=== PATIENT | female | born 1975 | race Caucasian/White ===

== ENCOUNTER 2017-01-28 09:13 | Outpatient (CLI) | payer BC, OTHER | END 2017-01-28 09:14 | disposition home or self-care (01) | DX: R53.83 Other fatigue (principal) ==

== ENCOUNTER 2017-03-14 08:33 | Day surgery (SDC) | payer BC, OTHER ==
[2017-03-14] MEDS ORDERED: LACTATED RINGERS 1,000 ML IV ONE ×2 (09:31→11:11)
[2017-03-14] MEDS ORDERED: fentaNYL 100 MCG/2 ML VIAL IVP ONE (10:50)
[2017-03-14] MEDS ORDERED: ONDANSETRON 4 MG/2 ML VIAL IVP ONE (10:50)
[2017-03-14] MEDS ORDERED: GLYCOPYRROLATE 1 MG/5 ML VIAL IVP ONE (10:50)
[2017-03-14] MEDS ORDERED: MIDAZOLAM 2 MG/2 ML VIAL IVP ONE (10:50)
[2017-03-14] MEDS ORDERED: ROCURONIUM 50 MG/5 ML VIAL IVP ONE (10:50)
[2017-03-14] MEDS ORDERED: ceFAZolin 1 GM VIAL IV ONE (10:50)
[2017-03-14] MEDS ORDERED: DEXAMETHASONE 4 MG/ML VIAL IVP ONE (10:50)
[2017-03-14] MEDS ORDERED: LIDOCAINE-MPF 2% 5 ML VIAL IM ONE (10:50)
[2017-03-14] MEDS ORDERED: SUCCINYLCHOLINE 200 MG/10 ML VIAL IVP ONE (10:50)
[2017-03-14] MEDS ORDERED: PROPOFOL 200 MG/20 ML VIAL IVP ONE (10:50)
[2017-03-14] MEDS ORDERED: BUPIVACAINE 0.5% PF 30 ML VIAL INFIL ONE ×2 (10:56)
[2017-03-14] MEDS ORDERED: LIDOCAINE MPF 1%-EPI 1:200000 30 ML VIAL SUBQ ONE ×2 (10:57)
[2017-03-14] MEDS: HYDROmorphone 1 MG/ML SYRINGE ONE ×2 (12:06→12:11)
[2017-03-14] MEDS ORDERED: oxyCOD/ACETAMIN 5 MG/325 MG TABLET PO ONE (12:38)
== END 2017-03-14 08:34 | disposition home or self-care (01) ==
PROC: 06BY0ZC Excision of Hemorrhoidal Plexus, Open Approach (ICD-10-PCS; 2017-03-14)
PROC: 06LY0CC Occlusion of Hemorrhoidal Plexus with Extraluminal Device, Open Approach (ICD-10-PCS; principal; 2017-03-14 10:15)
DX: K64.5 Perianal venous thrombosis (principal); K64.4 Residual hemorrhoidal skin tags; F17.210 Nicotine dependence, cigarettes, uncomplicated
CPT/HCPCS: 46221; 46320; 81025; A9270; J1170; J7120

== ENCOUNTER 2017-03-20 18:34 | Emergency (ER) | payer BC, OTHER ==
[2017-03-20] MEDS ORDERED: HYDROmorphone 1 MG/ML SYRINGE IVP STA (19:07)
[2017-03-20] MEDS ORDERED: HYDROmorphone 1 MG/ML SYRINGE ONE (19:20)
[2017-03-20] MEDS ORDERED: diphenhydrAMINE INJ 50 MG/ML VIAL IVP STA (19:59)
[2017-03-20] MEDS ORDERED: KETOROLAC 60 MG/2 ML VIAL IVP STA (19:59)
[2017-03-20] MEDS ORDERED: KETOROLAC 30 MG/ML VIAL ONE (20:34)
[2017-03-20] MEDS ORDERED: diphenhydrAMINE INJ 50 MG/ML VIAL ONE (20:34)
[2017-03-20] MEDS ORDERED: IOPAMIDOL-300 100 ML VIAL IVP ONE (20:36)
[2017-03-20] MEDS ORDERED: NITROGLYCERIN 2% PASTE TOP STA (21:47)
[2017-03-20] MEDS ORDERED: NITROGLYCERIN 2% PASTE TOP ONE (21:55)
[2017-03-20] MEDS ORDERED: LIDOCAINE VISCOUS 2% 15 ML UDC MM STA (22:38)
[2017-03-20] MEDS ORDERED: LIDOCAINE VISCOUS 2% 15 ML UDC MM ONE (22:39)
== END 2017-03-20 22:45 | disposition home or self-care (01) ==
DX: K62.89 Other specified diseases of anus and rectum (principal); G89.18 Other acute postprocedural pain; Z97.5 Presence of (intrauterine) contraceptive device; I25.10 Atherosclerotic heart disease of native coronary artery without angina pectoris; Z95.1 Presence of aortocoronary bypass graft; F17.200 Nicotine dependence, unspecified, uncomplicated
CPT/HCPCS: 36415; 72193; 80048; 85025; 96374; 96375; 99283; 99284; A9270; J1170; Q9967

== ENCOUNTER 2017-10-21 08:00 | Outpatient (CLI) | payer BC, OTHER | END 2017-10-21 23:59 | disposition home or self-care (01) | LOC: LAB.R 08:00 | PROVIDERS: ATTEND Registered Nurse | DX: Z30.433 Encounter for removal and reinsertion of intrauterine contraceptive device (principal) | CPT/HCPCS: 87491; 87591 ==

== ENCOUNTER 2017-10-28 15:45 | Outpatient (CLI) | payer BC, OTHER ==
--- NOTE | 2017-10-28 17:55 | Ultrasound Report ---
EXAM: PELVIC ULTRASOUND EXAM DATE: 10/28/2017 04:50 PM. CLINICAL HISTORY: PELVIC AND PERINEAL PAIN. COMPARISON: None. TECHNIQUE: Realtime transabdominal pelvic scan performed to identify the uterus and adnexa and as an overview of other pelvic structures, followed by transvaginal scan to provide greater detail of the u terus and adnexa, with static image documentation. FINDINGS: Uterus: 7.5 x 4.1 x 5.0 cm, volume 80 cc. Retroverted position. Normal overall size and echotexture. Masses: None. Endometrium: 7 mm. Intrauterine device is in place. Cervix: Unremarkable. Right Ovary: 2.8 x 1.5 x 1.6 cm, volume 4 cc. Normal echotexture and blood flow. Left Ovary: 2.9 x 1.5 x 2.3 cm, volume 5 cc. Normal echotexture and blood flow. Free Fluid: There is a small amount of free fluid within the pelvis. Other: None. IMPRESSION: 1. Uterus and endometrium are normal in echotexture. Intrauterine device is in expected position. 2. The ovaries are normal in size, echotexture, and vascularity. [facility] Referring Provider Line: [phone] SITE ID: [id number]
== END 2017-10-28 15:46 | disposition home or self-care (01) ==
LOC: DI 15:45
PROVIDERS: ATTEND Registered Nurse
DX: R10.2 Pelvic and perineal pain (principal); Z97.5 Presence of (intrauterine) contraceptive device
CPT/HCPCS: 76830; 76856

== ENCOUNTER 2017-11-08 14:37 | Outpatient (CLI) | payer BC, OTHER ==
--- NOTE | 2017-11-10 12:12 | Ultrasound Report ---
DATE OF SERVICE: 11/08/2017 LEFT BREAST ULTRASOUND: 11/08/2017 CLINICAL INDICATION: Focal pain, left upper central breast. TECHNIQUE: Real-time scanning was performed with sales representative publications static images obtained. FINDINGS Ultrasound of the left upper inner quadrant was performed. In the region of focal pain, at the 11:30 position, 5 cm from the nipple, no discrete solid or cystic mass is appreciated. Unremarkable parenc hymal lobules are seen. At the 9 o'clock position far inner, there is a 1.3 x 1.2 x 0.6 cm lymph node, accounting for the marian mographic abnormality. No sonographically suspicious findings are appreciated. IMPRESSION: Benign findings. RECOMMENDATIONS: Routine annual screening unless otherwise clinically indicated. BIRADS category 2 - Benign findings. TD: 11/08/2017 21:03
--- NOTE | 2017-11-10 12:13 | Mammography Report ---
DATE OF SERVICE: 11/08/2017 DIGITAL DIAGNOSTIC BILATERAL MAMMOGRAM: 11/08/2017 CLINICAL INDICATION: Localized pain, left upper inner quadrant. This is the patient's baseline examination. TECHNIQUE: Bilateral CC and MLO views, bilateral laterally exaggerated craniocaudal views, left true lateral view. Markers were placed at the site of maximal tenderness identified by the patient. FINDINGS: The breasts demonstrate heterogeneously dense fibroglandular parenchyma bilaterally. No mammographic abnormality is appreciated at the site of localized tenderness in the left upper inner c entral breast. In the left inner far posterior breast, there is a circumscribed 1.4 cm nodule, which appear s to demonstrate a fatty hilum on one projection. Please also refer to left breast ultrasound of the same day. No mammographically suspicious findings are appreciated in the right breast. IMPRESSION: Benign findings, with an intramammary lymph node accounting for the mammographic abnorma lity. RECOMMENDATION: Routine annual screening unless otherwise clinically indicated. BIRADS category 2 - Benign findings. STANDARD QUALIFYING STATEMENTS 1. This examination was reviewed with the aid of Computed-Aided Detection (CAD). 2. A negative or benign imaging report should not delay biopsy if clinically suspicious findings are present. Consider surgical consultation if warranted. More than 5% of cancers are not identified by imaging. 3. Dense breasts may obscure an underlying neoplasm. TD: 11/08/2017 21:11
== END 2017-11-08 14:38 | disposition home or self-care (01) ==
LOC: DI 14:37
PROVIDERS: ATTEND Registered Nurse
DX: N64.59 Other signs and symptoms in breast (principal)
CPT/HCPCS: 76642; 77066

== ENCOUNTER 2018-04-09 09:54 | Emergency (ER) | payer BC, OTHER ==
[2018-04-09 10:08] VITALS: BP 115/76
[2018-04-09 10:29] LABS: BILIRUBIN,URINE NEGATIVE (NEGATIVE); CLARITY,URINE CLEAR (CLEAR); GLUCOSE, URINE (UA) NEGATIVE (NEGATIVE); KETONES,URINE (UA) NEGATIVE (NEGATIVE); LEUKOCYTE ESTERASE, URINE NEGATIVE (NEGATIVE); NITRITE,URINE NEGATIVE (NEGATIVE); OCCULT BLOOD,URINE NEGATIVE (NEGATIVE); PH,URINE 5.5 PH (5.0-7.5); PROTEIN,URINE NEGATIVE (NEGATIVE); UROBILINOGEN,URINE 0.2 (NORMAL) E.U./dL (NORMAL)
[2018-04-09 10:31] LABS: BASOPHILS % (AUTO) 0.7 %; EOSINOPHILS % (AUTO) 2.5 %; HGB - HEMOGLOBIN 15.1 g/dL (12.0-16.0); LYMPHOCYTES % (AUTO) 37.3 %; MEAN CORPUSCULAR HGB CONC 34.1 g/dL (32.0-36.0); MEAN PLATELET VOLUME 8.9 fL (7.9-10.8); MONOCYTES % (AUTO) 7.7 %; NEUTROPHILS % (AUTO) 51.8 %; PLT - PLATELET COUNT 195 10^3/uL (130-450); RED BLOOD COUNT 5.03 10^6/uL (4.20-5.40); RED CELL DISTRIBUTION WIDTH 14.3 % (12.0-15.0); WHITE BLOOD COUNT 8.4 x10^3/uL (4.8-10.8)
[2018-04-09 10:31] LABS: HCG UR QUAL NEGATIVE
[2018-04-09 10:33] LABS: ABNORMAL LYMPHS % (MANUAL) 0 %
[2018-04-09 10:38] LABS: ALBUMIN 3.7 g/dL (3.2-5.5); BILIRUBIN,TOTAL 0.7 mg/dL (0.2-1.0); CALCIUM 8.3 mg/dL (8.5-10.3); CREATININE 0.8 mg/dL (0.4-1.0); TOTAL PROTEIN 7.4 g/dL (6.7-8.2)
[2018-04-09 10:55] LABS: BAND NEUTROPHILS % (MANUAL) 3 %; DIFFERENTIAL COMMENT MANUAL DIFFERENTIAL; EOSINOPHILS # (MANUAL) 0.2 10^3/uL (0-0.7); LYMPHOCYTES # (MANUAL) 3.5 10^3/uL (1.5-3.5); LYMPHOCYTES % (MANUAL) 42 %; NEUTROPHILS # (MANUAL) 4.7 10^3/uL (1.5-6.6); NEUTROPHILS % (MANUAL) 53 %; PLATELET ESTIMATE, MANUAL NORMAL (130-450,000) (NORMAL); PLATELET MORPHOLOGY NORMAL APPEARANCE (NORMAL); RBC MORPHOLOGY (MULTIPLE) NORMAL APPEARANCE (NORMAL)
[2018-04-09] MEDS ORDERED: IOPAMIDOL-300 100 ML VIAL ONE (12:00)
[2018-04-09] MEDS ORDERED: IOPAMIDOL-300 100 ML VIAL IVP ONE (12:11)
--- NOTE | 2018-04-09 12:41 | CT Preliminary Report ---
Exam: CT ABDOMEN/PELVIS W/ IMPRESSION: Probable bilateral adrenal adenomas. Otherwise unremarkable abdomen and pelvic CT scan, w ithout demonstrated cause for left lower quadrant abdominal pain. Six-month follow-up abdomen CT scan, without and with contrast, adrenal mass protocol recommended for further assessment and to assess for stability. [facility] SITE ID: [id number]
--- NOTE | 2018-04-09 12:46 | CT Report ---
EXAM: CT ABDOMEN AND PELVIS WITH CONTRAST EXAM DATE: 04/09/2018 12:12 PM. CLINICAL HISTORY: Left lower quadrant pain, nontraumatic, in a 42-year-old female. COMPARISONS: Contrast-enhanced pelvic CT scan of 03/20/2017. Pelvic ultrasound of 10/28/2017. No prio r abdominal imaging available for comparison. TECHNIQUE: Emergent axial helical CT imaging was performed through the abdomen and pelvis. IV contras t: 100 mL Isovue-300. Enteric contrast: None. Reconstructions: Coronal and sagittal. In accordance with CT protocol optimization, one or more of the following dose reduction techniques w ere utilized for this exam: automated exposure control, adjustment of mA and/or KV based on patient s ize, or use of iterative reconstructive technique. FINDINGS: Lung Bases: Unremarkable. Liver: Normal size, contour and attenuation. No mass or cyst. Gallbladder/Bile Ducts: No gallstones, wall thickening or dilated bile ducts. Spleen: Mildly to moderately enlarged, measuring 13.8 cm in AP and craniocaudad dimension. Normal att enuation. No mass or cyst. Pancreas: Normal. Adrenal Glands: Mild to moderate enlargement of the adrenal glands bilaterally, left greater than rig ht, with the left side measuring 2.5 x 1.8 cm in diameter, both hypoattenuating suggesting benign ferny nomas. Kidneys: Normal. No masses or hydronephrosis. Peritoneal Cavity/Bowel: Normal. No free fluid, free air or adenopathy. No masses or acute inflammato ry process. Appendix not definitively seen. No secondary signs of appendicitis. Terminal ileum appear s normal. Pelvic Organs: Urinary bladder unremarkable. Uterus appears normal. T-shaped IUD in the appropriate l ocation. No adnexal mass or abscess. No free fluid or adenopathy. Vasculature: No aneurysms or other significant abnormality. Bones: Normal. Other: None. IMPRESSION: Probable bilateral adrenal adenomas. Otherwise unremarkable abdomen and pelvic CT scan, without demon strated cause for left lower quadrant abdominal pain. Six-month follow-up abdomen CT scan, without and with contrast, adrenal mass protocol recommended for further assessment and to assess for stability. [facility] Referring Provider Line: [phone] SITE ID: [id number]
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
== END 2018-04-09 13:41 | disposition home or self-care (01) ==
LOC: ED 09:54
DX: R10.32 Left lower quadrant pain (principal); F17.210 Nicotine dependence, cigarettes, uncomplicated
CPT/HCPCS: 36415; 74177; 80053; 81003; 81025; 83690; 85025; 99283; 99284; Q9967; 81001; 87086

== ENCOUNTER 2019-01-11 22:02 | Outpatient (CLI) | payer BC, OTHER ==
--- NOTE | 2019-01-12 05:59 | Ultrasound Report ---
Reason: PELVIC PAIN Procedure Date: 01/11/2019 Accession Number: [id number] / [id number] Procedure: US - Pelvic w/Transvaginal CPT Code: FULL RESULT: EXAM: PELVIC ULTRASOUND EXAM DATE: 01/11/2019 11:05 PM. CLINICAL HISTORY: Pelvic pain. COMPARISON: PELVIC W/TRANSVAGINAL 10/28/2017 4:07 PM, ABDOMEN/PELVIS W/ 04/09/2018 12:03 PM. TECHNIQUE: Real-time transabdominal pelvic scan performed to identify the uterus and adnexa and as an overview of other pelvic structures, followed by transvaginal scan to provide greater detail of the uterus and adnexa, with static image documentation. FINDINGS: Uterus: 8.6 x 5.6 x 5.1 cm, volume 128.4 cc. Retroverted position. Normal overall size and echotexture. Masses: None. Endometrium: 11.5 mm. IUD appears to be in proper position. Cervix: Unremarkable. Right Ovary: 3.2 x 2.3 x 1.9 cm, volume 7.3 cc. Normal echotexture and blood flow. Left Ovary: 3.9 x 3.5 x 3.1 cm, volume 22.1 cc. Contains a small, 2.5 cm hemorrhagic appearing corpus luteum. Free Fluid: Small. Other: None. IMPRESSION: 1. Left ovarian 2.5 cm hemorrhagic corpus luteum and mild free fluid. 2. IUD in place. [facility]
== END 2019-01-11 22:03 | disposition home or self-care (01) ==
LOC: DI 22:02
PROVIDERS: ATTEND Obstetrics & Gynecology
DX: R10.2 Pelvic and perineal pain (principal); N83.12 Corpus luteum cyst of left ovary; Z97.5 Presence of (intrauterine) contraceptive device
CPT/HCPCS: 76830; 76856

== ENCOUNTER 2019-12-26 14:31 | Outpatient (CLI) | payer BC, OTHER ==
--- NOTE | 2019-12-27 08:52 | Ultrasound Report ---
Reason: HX OF OVARIAN CYST, PELVIC PAIN Procedure Date: 12/26/2019 Accession Number: [id number] / [id number] Procedure: US - Pelvic w/Transvaginal CPT Code: Final Report FULL RESULT: EXAM: PELVIC ULTRASOUND EXAM DATE: 12/26/2019 02:46 PM. CLINICAL HISTORY: History ovarian cyst, pelvic pain. IUD removed one week ago. COMPARISON: PELVIC W/TRANSVAGINAL 01/11/2019 10:22 PM. TECHNIQUE: Realtime transabdominal pelvic scan performed to identify the uterus and adnexa and as an overview of other pelvic structures, followed by transvaginal scan to provide greater detail of the uterus and adnexa, with static image documentation. FINDINGS: Uterus: 6.9 x 4.3 x 4.7 cm, volume 73 cc. Retroverted position. Normal overall size and echotexture. Masses: None. Endometrium: 6 mm. Normal. Cervix: Unremarkable. Right Ovary: 3.3 x 3.1 x 1.9 cm, volume 10.2 cc. Normal echotexture and blood flow. Left Ovary: 2.7 x 1.8 x 1.9 cm, volume 4.8 cc. Normal echotexture and blood flow. Free Fluid: Trace. Other: None. IMPRESSION: Normal pelvic ultrasound. Interval resolution of left ovarian hemorrhagic corpus luteal cyst. [facility]
== END 2019-12-26 14:32 | disposition home or self-care (01) ==
LOC: DI 14:31
PROVIDERS: ATTEND Obstetrics & Gynecology
DX: R10.2 Pelvic and perineal pain (principal); Z87.42 Personal history of other diseases of the female genital tract
CPT/HCPCS: 76830; 76856

== ENCOUNTER 2020-07-23 16:57 | Outpatient (CLI) | payer BC, OTHER ==
[2020-07-23 20:10] LABS: BASOPHILS % (AUTO) 0.6 %; EOSINOPHILS # (AUTO) 0.1 10^3/uL (0.0-0.7); EOSINOPHILS % (AUTO) 1.7 %; HGB - HEMOGLOBIN 14.3 g/dL (12.0-16.0); LYMPHOCYTES # (AUTO) 1.9 10^3/uL (1.5-3.5); LYMPHOCYTES % (AUTO) 27.9 %; MEAN CORPUSCULAR HGB CONC 32.8 g/dL (32.0-36.0); MEAN CORPUSCULAR VOLUME 94.4 fL (81.0-99.0); MEAN PLATELET VOLUME 11.4 fL (7.9-10.8); MONOCYTES # (AUTO) 0.6 10^3/uL (0.0-1.0); MONOCYTES % (AUTO) 9.2 %; NEUTROPHILS # (AUTO) 4.2 10^3/uL (1.5-6.6); NEUTROPHILS % (AUTO) 60.3 %; PLT - PLATELET COUNT 209 10^3/uL (130-450); RED BLOOD COUNT 4.62 10^6/uL (4.20-5.40); RED CELL DISTRIBUTION WIDTH 13.2 % (12.0-15.0); WHITE BLOOD COUNT 6.9 x10^3/uL (4.8-10.8)
[2020-07-23 20:22] LABS: ALBUMIN 4.4 g/dL (3.2-5.5); ALBUMIN/GLOBULIN RATIO 1.6 (1.0-2.2); BILIRUBIN,TOTAL 0.6 mg/dL (0.2-1.0); CALCIUM 9.1 mg/dL (8.5-10.3); CREATININE 0.6 mg/dL (0.4-1.0); TOTAL PROTEIN 7.1 g/dL (6.7-8.2)
[2020-07-23 20:39] LABS: THYROID STIMULATING HORMONE 1.59 uIU/mL (0.34-5.60)
[2020-07-23 20:41] LABS: FREE T4 (FREE THYROXINE) 0.82 ng/dL (0.58-1.64)
== END 2020-07-23 16:58 | disposition home or self-care (01) ==
LOC: LAB.S 16:57
PROVIDERS: ATTEND Physician Assistant
DX: Z13.1 Encounter for screening for diabetes mellitus (principal); R53.83 Other fatigue
CPT/HCPCS: 36415; 80053; 84439; 84443; 85025

== ENCOUNTER 2020-08-14 17:43 | Outpatient (CLI) | payer BC, OTHER ==
[2020-08-14] MEDS ORDERED: IOVERSOL 320 100 ML VIAL IVP ONE ×2 (17:55→18:22)
--- NOTE | 2020-08-15 09:40 | CT Report ---
PROCEDURE: ABDOMEN W/WO INDICATIONS: ADRENAL ADENOMA TECHNIQUE: Axial precontrast thin section scanning was performed through the adrenal glands precontra st, and thereafter after contrast infusion. Coronal and sagittal postcontrast reformation. Imaging wa s then performed. COMPARISON: Prior contrast-enhanced CT scanning abdomen/pelvis 04/09/2018.. FINDINGS: The ovoid left adrenal enlargement has not increased in size considering slight differences in scan l evel. This structure measures 2.5 cm AP and 2.0 cm transverse with an internal low density of -4.5 [place] units. Subsequent postcontrast imaging shows a mild increase as expected, reaching 25 [place] units. On the right the 2 limbs of the adrenal gland are in apposition, normal in combined thick ness. No new abnormality is seen. IMPRESSION: Stable appearing left adrenal adenoma with reference to the prior contrast-enhanced CT scanning 2017 Reviewed by: Herbie Mosquera MD on 08/15/2020 9:39 AM PDT Approved by: Herbie Mosquera MD on 08/15/2020 9:39 AM PDT Station ID: [id number]
== END 2020-08-14 17:44 | disposition home or self-care (01) ==
LOC: DI 17:43
PROVIDERS: ATTEND Physician Assistant
DX: D35.02 Benign neoplasm of left adrenal gland (principal)
CPT/HCPCS: 74170; Q9967

== ENCOUNTER 2020-10-07 09:13 | Outpatient (CLI) | payer BC, OTHER ==
[2020-10-07 14:38] LABS: BASOPHILS % (AUTO) 0.6 %; EOSINOPHILS # (AUTO) 0.1 10^3/uL (0.0-0.7); EOSINOPHILS % (AUTO) 1.3 %; HGB - HEMOGLOBIN 14.4 g/dL (12.0-16.0); LYMPHOCYTES # (AUTO) 1.7 10^3/uL (1.5-3.5); LYMPHOCYTES % (AUTO) 25.2 %; MEAN CORPUSCULAR HEMOGLOBIN 30.7 pg (27.0-31.0); MEAN CORPUSCULAR HGB CONC 32.5 g/dL (32.0-36.0); MEAN CORPUSCULAR VOLUME 94.5 fL (81.0-99.0); MEAN PLATELET VOLUME 10.9 fL (7.9-10.8); MONOCYTES # (AUTO) 0.5 10^3/uL (0.0-1.0); MONOCYTES % (AUTO) 6.9 %; NEUTROPHILS # (AUTO) 4.4 10^3/uL (1.5-6.6); NEUTROPHILS % (AUTO) 65.6 %; PLT - PLATELET COUNT 231 10^3/uL (130-450); RED BLOOD COUNT 4.69 10^6/uL (4.20-5.40); WHITE BLOOD COUNT 6.8 x10^3/uL (4.8-10.8)
[2020-10-07 15:33] LABS: THYROID STIMULATING HORMONE 1.94 uIU/mL (0.34-5.60)
[2020-10-07 15:35] LABS: FREE T4 (FREE THYROXINE) 0.72 ng/dL (0.58-1.64)
== END 2020-10-07 09:14 | disposition home or self-care (01) ==
LOC: LAB.S 09:13
PROVIDERS: ATTEND Internal Medicine Endocrinology, Diabetes & Metabolism
DX: E27.8 Other specified disorders of adrenal gland (principal)
CPT/HCPCS: 36415; 81599; 82088; 83835; 84244; 84439; 84443; 85025

== ENCOUNTER 2020-10-08 08:03 | Outpatient (CLI) | payer BC, OTHER | END 2020-10-08 08:04 | disposition home or self-care (01) | LOC: LAB.S 08:03 | PROVIDERS: ATTEND Internal Medicine Endocrinology, Diabetes & Metabolism | DX: E27.8 Other specified disorders of adrenal gland (principal) | CPT/HCPCS: 36415; 82533 ==

== ENCOUNTER 2021-01-18 18:44 | Emergency (ER) | payer BC, OTHER ==
[2021-01-18 18:53] VITALS: BP 134/68
--- NOTE | 2021-01-18 19:00 | ED Physician Documentation ---
PD HPI LOWER EXT INJURY - Stated complaint Stated Complaint: RT FOOT INJURY - Chief complaint Chief Complaint: Ext Problem - History obtained from History obtained from: Patient (She got a new horse yesterday and it stepped on her left foot twice this afternoon. She has moderate pain in the area of the proximal forefoot and the distal first and second metatarsals. No other injuries. 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 Cardiovascular: CABG Neuro: Craniotomy HEENT: Cataracts - Present Medications Home Medications: Ambulatory Orders Medication Instructions Recorded Confirmed No Known Home Medications 01/18/21 01/18/21 - Allergies Allergies/Adverse Reactions: Allergies Allergy/AdvReac Type Severity Reaction Status Date / Time meperidine HCl * Allergy Unknown Verified 01/18/21 18:53 [From Demerol] unknown antibiotic Allergy Hives Uncoded 01/18/21 18:53 surgical suture materia AdvReac Unknown Uncoded 01/18/21 18:53 - Social History Does the pt smoke?: Yes Smoking Status: Current every day smoker Does the pt drink ETOH?: Yes Does the pt have substance abuse?: No - Immunizations Immunizations are current?: Yes PD ED PE NORMAL - Vitals Vital signs reviewed: Yes - General General: Alert and oriented X 3, No acute distress - HEENT HEENT: PERRL, EOMI - Neck Neck: Supple, no meningeal sign, No bony TTP - Extremities Extremities: Other (Tender to the proximal forefoot and also to the distal fourth and fifth metatarsals. She has pain with flexion extension of the first through third Phalanges) - Neuro Neuro: Alert and oriented X 3, Normal speech Results - Vitals Vitals: Vital Signs - 24 hr 01/18/21 18:48 Temperature 36.9 C Heart Rate 92 Respiratory 18 Rate Blood Pressure 134/68 H O2 Saturation 99 Oxygen O2 Source Room air - Rads (name of study) L foot XR Radiology: EMP read contemporaneously (On the lateral view only there is a tiny proximal metatarsal fracture. Given that its the lateral view only it is hard to say which metatarsal it is associated with.) Departure - Departure Disposition: 01 Home, Self Care Clinical Impression: Crushing injury Metatarsal fracture Qualifiers: Encounter type: initial encounter Metatarsal bone: unspecified metatarsal Fracture type: closed Fracture alignment: nondisplaced Laterality: left Qualified Code(s): S92.302A - Fracture of unspecified metatarsal bone(s), left foot, initial encounter for closed fracture Condition: Good Record reviewed to determine appropriate education?: Yes Instructions: ED Fx Foot Follow-Up: [facility] [Provider Group] Comments: As discussed, it looks like there probably is a tiny little metatarsal fracture in your left foot. It small enough that I think you can walk and bear weight on it as tolerated with the fracture shoe. Reasonable to follow-up with one of our orthopedists within the week, call tomorrow for an appointment. Tylenol or ibuprofen as needed for pain.
--- NOTE | 2021-01-18 19:42 | XRAY Report ---
PROCEDURE: Foot 3 View LT INDICATIONS: foot inj TECHNIQUE: 3 views of the foot were acquired. COMPARISON: None FINDINGS: Bones: Noncorticated fragment projecting along the dorsal aspect of the tarsometatarsal region, thou gh it is uncertain which joint this is associated with. This is seen only on the lateral view. No oth er fractures are visible. No dislocations. No suspicious bony lesions. Soft tissues: No tibiotalar joint effusion. Achilles tendon appears normal. IMPRESSION: 1. Small osseous fragment projects dorsal to the tarsometatarsal region on the lateral view. Correlat e with point tenderness. 2. No other fractures visible. If there is continued concern for other occult fracture, immobilizatio n and reimaging in 7-10 days is recommended. Reviewed by: Lianet Ochoa MD on 01/18/2021 7:41 PM PST Approved by: Lianet Ochoa MD on 01/18/2021 7:41 PM PST Station ID: [id number]
== END 2021-01-18 19:55 | disposition home or self-care (01) ==
LOC: ED 18:44
DX: S97.82XA Crushing injury of left foot, initial encounter (principal); S92.302A Fracture of unspecified metatarsal bone(s), left foot, initial encounter for closed fracture; W55.19XA Other contact with horse, initial encounter; F17.200 Nicotine dependence, unspecified, uncomplicated
CPT/HCPCS: 99283; 99284

== ENCOUNTER 2021-03-24 10:01 | Emergency (ER) | payer BC, OTHER ==
--- NOTE | 2021-03-24 10:32 | ED Physician Documentation ---
PD HPI FEMALE - Stated complaint Stated Complaint: FEMALE - Chief complaint Chief Complaint: Abd Pain - History obtained from History obtained from: Patient - History of Present Illness Timing - onset: Yesterday (some cramping yesterday with new vaginal bleeding overnight, using a pad every couple hours. Concerned about miscarriage as had positive preg test several days ago. LMP was 2 months ago but was irregular before that.) Timing - duration: Hours Timing - details: Abrupt onset, Still present Associated symptoms: Pelvic pain, Vaginal bleeding. 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 denies: Nausea, Vomiting, Diarrhea : reports: Vaginal bleeding, Now EGA (not sure, could be up to 8 weeks). denies: Dysuria, Discharge Musculoskeletal: denies: Neck pain, Back pain PD PAST MEDICAL HISTORY - Past Medical History Past Medical History: Yes Cardiovascular: None Respiratory: None Neuro: None Endocrine/Autoimmune: None GI: Hemorrhoids ALMOND BLANCHER OPERATOR: None : Incontinence, Frequency HEENT: Other Psych: None Musculoskeletal: None Derm: None - Past Surgical History Past Surgical History: Yes General: Appendectomy Ortho: Other /ALMOND BLANCHER OPERATOR: section Cardiovascular: CABG Neuro: Craniotomy HEENT: Cataracts - Present Medications Home Medications: Ambulatory Orders Medication Instructions Recorded Confirmed No Known Home Medications 01/18/21 03/24/21 - Allergies Allergies/Adverse Reactions: Allergies Allergy/AdvReac Type Severity Reaction Status Date / Time meperidine HCl * Allergy Unknown Verified 03/24/21 10:08 [From Demerol] unknown antibiotic Allergy Hives Uncoded 01/18/21 18:53 surgical suture materia AdvReac Unknown Uncoded 01/18/21 18:53 - Social History Does the pt smoke?: Yes Smoking Status: Current every day smoker Does the pt drink ETOH?: Yes Does the pt have substance abuse?: No - Immunizations Immunizations are current?: Yes - POLST Patient has POLST: No PD ED PE NORMAL - Vitals Vital signs reviewed: Yes - General General: Alert and oriented X 3, Well developed/nourished, Other (appears in some discomfort lower abdomen) - Neck Neck: Supple, no meningeal sign, No adenopathy - Cardiac Cardiac: RRR, No murmur - Respiratory Respiratory: Clear bilaterally - Abdomen Abdomen: Normal bowel sounds, Soft, Non distended, No organomegaly, Other (tender suprapubic to RLQ area without percussion nor rebound tenderness. ) - Female Female : Block Cuber present, Other (some darker blood in vault. no discharge. No tissue noted. Minimal bleeding per os. ) - Rectal Rectal: Deferred - Back Back: No CVA TTP - Derm Derm: Normal color, Warm and dry Results - Vitals Vitals: Vital Signs - 24 hr 03/24/21 03/24/21 03/24/21 10:08 11:19 13:15 Temperature 36.8 C 36.9 C 37.1 C Heart Rate 74 57 L 59 L Respiratory 16 17 18 Rate Blood Pressure 127/88 H 115/83 H 108/83 H O2 Saturation 98 96 97 Oxygen O2 Source Room air - Labs Labs: Laboratory Tests 03/24/21 03/24/21 03/24/21 11:00 11:00 11:00 WBC 5.4 RBC 4.47 Hgb 14.1 Hct 42.5 MCV 95.1 MCH 31.5 H MCHC 33.2 RDW 13.2 Plt Count 206 MPV 10.5 Neut # (Auto) 3.5 Lymph # (Auto) 1.4 L [place] # (Auto) 0.5 Eos # (Auto) 0.1 Baso # (Auto) 0.1 Absolute Nucleated RBC 0.00 Nucleated RBC % 0.0 Sodium 139 Potassium 4.1 Chloride 107 Carbon Dioxide 22 Anion Gap 10.0 BUN 7 Creatinine 0.7 Estimated GFR (MDRD) 91 Glucose 117 H Calcium 8.8 HCG, Quant 196.34 Urine Color Urine Clarity Urine pH Ur Specific [place] Urine Protein Urine Glucose (UA) Urine Ketones Urine Occult Blood Urine Nitrite Urine Bilirubin Urine Urobilinogen Ur Leukocyte Esterase Urine RBC Urine WBC Ur Squamous Epith Cells Urine Bacteria Ur Microscopic Review Urine Culture Comments Blood Type 03/24/21 03/24/21 11:00 11:07 WBC RBC Hgb Hct MCV MCH MCHC RDW Plt Count MPV Neut # (Auto) Lymph # (Auto) [place] # (Auto) Eos # (Auto) Baso # (Auto) Absolute Nucleated RBC Nucleated RBC % Sodium Potassium Chloride Carbon Dioxide Anion Gap BUN Creatinine Estimated GFR (MDRD) Glucose Calcium HCG, Quant Urine Color LIGHT YELLOW Urine Clarity CLEAR Urine pH 7.0 Ur Specific [place] 1.010 Urine Protein NEGATIVE Urine Glucose (UA) NEGATIVE Urine Ketones NEGATIVE Urine Occult Blood LARGE H Urine Nitrite NEGATIVE Urine Bilirubin NEGATIVE Urine Urobilinogen 0.2 (NORMAL) Ur Leukocyte Esterase NEGATIVE Urine RBC 6-10 H Urine WBC 0-3 Ur Squamous Epith Cells FEW Squamous Urine Bacteria Few Ur Microscopic Review INDICATED Urine Culture Comments NOT INDICATED Blood Type A POSITIVE - Rads (name of study) OB U/S Radiology: Prelim report reviewed (no IUP. No adnexal masses. Minimal free fluid in pelvis. Small cyst left ovary. ), See rad report PD MEDICAL DECISION MAKING - ED course Complexity details: reviewed results (u/s does not show iup. no adnexal process nor significant free fluid. small presumed cyst on left ovary. Concern for ectopic vs miscarriage or early . ), re-evaluated patient (I emphasized with patient the need for follow up and concern for ectopic still vs miscarriage. ), considered differential, d/w audit consultant (dr. wilson, television journalist) Departure - Departure Disposition: 01 Home, Self Care Clinical Impression: Early stage of , Vaginal bleeding affecting early Cyst of ovary Qualifiers: Laterality: left Qualified Code(s): N83.202 - Unspecified ovarian cyst, left side Condition: Stable Record reviewed to determine appropriate education?: Yes Instructions: ED Miscarriage Poss Follow-Up: Anastasia Wilson MD [Provider Admit Priv/Credential] - Comments: I talked with Dr. iWlson who is on-call for POLICE COMMUNICATIONS DISPATCHER. She put in an order for repeat quantitative hCG blood test for 2 days from now. Have this drawn at the lab and the result will go to her. Also call their office for a follow-up for a few days from now. Tylenol ibuprofen if needed for pains or cramps. I would anticipate decreasing of the bleeding over the next several hours and into tomorrow. Return if significant bleeding increases or you have worsening pain or fevers or repetitive vomiting. Otherwise follow-up with POLICE COMMUNICATIONS DISPATCHER in the next several days with a repeat blood test in 2 days. Discharge Date/Time: 03/24/21 13:21
[2021-03-24] MEDS ORDERED: KETOROLAC 30 MG/ML VIAL IVP STA (10:48)
[2021-03-24] MEDS ORDERED: SODIUM CHLORIDE 0.9% 1,000 ML IV STA (10:48)
[2021-03-24 11:13] LABS: BILIRUBIN,URINE NEGATIVE (NEGATIVE); GLUCOSE, URINE (UA) NEGATIVE (NEGATIVE); KETONES,URINE (UA) NEGATIVE (NEGATIVE); LEUKOCYTE ESTERASE, URINE NEGATIVE (NEGATIVE); NITRITE,URINE NEGATIVE (NEGATIVE); OCCULT BLOOD,URINE LARGE (NEGATIVE); PROTEIN,URINE NEGATIVE (NEGATIVE); UROBILINOGEN,URINE 0.2 (NORMAL) E.U./dL (NORMAL)
[2021-03-24 11:17] LABS: BASOPHILS # (AUTO) 0.1 10^3/uL (0.0-0.1); BASOPHILS % (AUTO) 0.9 %; EOSINOPHILS # (AUTO) 0.1 10^3/uL (0.0-0.7); EOSINOPHILS % (AUTO) 1.3 %; HCT - HEMATOCRIT 42.5 % (37.0-47.0); HGB - HEMOGLOBIN 14.1 g/dL (12.0-16.0); LYMPHOCYTES # (AUTO) 1.4 10^3/uL (1.5-3.5); LYMPHOCYTES % (AUTO) 25.1 %; MEAN CORPUSCULAR HEMOGLOBIN 31.5 pg (27.0-31.0); MEAN CORPUSCULAR HGB CONC 33.2 g/dL (32.0-36.0); MEAN CORPUSCULAR VOLUME 95.1 fL (81.0-99.0); MEAN PLATELET VOLUME 10.5 fL (7.9-10.8); MONOCYTES # (AUTO) 0.5 10^3/uL (0.0-1.0); MONOCYTES % (AUTO) 8.4 %; NEUTROPHILS # (AUTO) 3.5 10^3/uL (1.5-6.6); NEUTROPHILS % (AUTO) 64.1 %; PLT - PLATELET COUNT 206 10^3/uL (130-450); RED BLOOD COUNT 4.47 10^6/uL (4.20-5.40); RED CELL DISTRIBUTION WIDTH 13.2 % (12.0-15.0); WHITE BLOOD COUNT 5.4 x10^3/uL (4.8-10.8)
[2021-03-24 11:22] LABS: CLARITY,URINE CLEAR (CLEAR); WBC,URINE 0-3 /HPF (0-5)
[2021-03-24 11:23] LABS: BACTERIA,URINE Few /HPF (None Seen); SQUAMOUS EPITHELIAL CELL,UR FEW Squamous (<= Few)
[2021-03-24 11:31] LABS: CALCIUM 8.8 mg/dL (8.5-10.3); CREATININE 0.7 mg/dL (0.4-1.0); POTASSIUM 4.1 mmol/L (3.5-5.0)
[2021-03-24 13:15] VITALS: BP 108/83
--- NOTE | 2021-03-24 14:34 | Ultrasound Report ---
PROCEDURE: OB First Trimester INDICATIONS: early , vag bleeding/cramps today OUTSIDE/PRIOR DATING DATA: Last menstrual period (LMP): Unknown. LMP-based estimated date of delivery (KEERTHI): Unknown. First dating scan (date and location): 03/24/2021. Estimated date of delivery (KEERTHI) from first dating scan: Not applicable. TECHNIQUE: Real-time scanning was performed of the fetus and maternal pelvic organs, with image documentation. COMPARISON: None FINDINGS: No visualized intrauterine or extrauterine is identified. Uterus is normal in size with end ometrium measuring 9 mm. Small focus presumably cyst is noted within the left ovary measuring 13 x 10 x 14 mm. Minimal free fluid is noted. IMPRESSION: No visualized intrauterine or extrauterine . However, recommend correlation to beta hCG leve ls and short interval imaging follow-up as recommended. The preliminary report was given to Dr. Juan David Sampson on 03/24/2021 at 1:30 PM. Reviewed by: Selena Mcdonald MD on 03/24/2021 2:33 PM PDT Approved by: Selena Mcdonald MD on 03/24/2021 2:33 PM PDT Station ID: [id number]
--- NOTE | 2021-03-24 17:07 | Ultrasound Report ---
PROCEDURE: OB Transvaginal INDICATIONS: early , vag bleeding/cramps today OUTSIDE/PRIOR DATING DATA: Last menstrual period (LMP): Unknown. LMP-based estimated date of delivery (KEERTHI): Unknown. First dating scan (date and location): 03/24/2021. Estimated date of delivery (KEERTHI) from first dating scan: Not applicable. TECHNIQUE: Real-time scanning was performed of the fetus and maternal pelvic organs, with image documentation. COMPARISON: None FINDINGS: No visualized intrauterine or extrauterine is identified. Uterus is normal in size with end ometrium measuring 9 mm. Small focus presumably cyst is noted within the left ovary measuring 13 x 10 x 14 mm. Minimal free fluid is noted. IMPRESSION: No visualized intrauterine or extrauterine . However, recommend correlation to beta hCG leve ls and short interval imaging follow-up as recommended. Preliminary report was given to Dr. Juan David Sampson on 03/24/2021 at 1:30 PM. Reviewed by: Selena Mcdonald MD on 03/24/2021 5:05 PM PDT Approved by: Selena Mcdonald MD on 03/24/2021 5:05 PM PDT Station ID: [id number]
== END 2021-03-24 13:21 | disposition home or self-care (01) ==
LOC: ED 10:01
DX: O20.9 Hemorrhage in early pregnancy, unspecified (principal); O34.81 Maternal care for other abnormalities of pelvic organs, first trimester; N83.202 Unspecified ovarian cyst, left side; O99.331 Smoking (tobacco) complicating pregnancy, first trimester
CPT/HCPCS: 36415; 80048; 81001; 81003; 84702; 85025; 86900; 86901; 87086; 96361; 96374; 99283

== ENCOUNTER 2021-03-26 16:08 | Outpatient (CLI) | payer BC | END 2021-03-26 16:09 | disposition home or self-care (01) | LOC: LAB.S 16:08 | PROVIDERS: ATTEND Obstetrics & Gynecology | DX: O20.0 Threatened abortion (principal) | CPT/HCPCS: 36415; 84702 ==

== ENCOUNTER 2021-03-31 17:16 | Outpatient (CLI) | payer BC | END 2021-03-31 17:17 | disposition home or self-care (01) | LOC: LAB.S 17:16 | PROVIDERS: ATTEND Obstetrics & Gynecology | DX: O20.0 Threatened abortion (principal) | CPT/HCPCS: 36415; 84702 ==

== ENCOUNTER 2021-04-03 06:51 | Outpatient (CLI) | payer BC ==
--- NOTE | 2021-04-03 14:44 | Ultrasound Report ---
PROCEDURE: OB First Trimester w/TV INDICATIONS: THREATENED OUTSIDE/PRIOR DATING DATA: Last menstrual period (LMP): 01/25/2021. LMP-based estimated date of delivery (KEERTHI): 11/01/2021. First dating scan (date and location): 03/24/2021. Estimated date of delivery (KEERTHI) from first dating scan: Not applicable. TECHNIQUE: Real-time scanning was performed of the fetus and maternal pelvic organs, with image documentation. Endovaginal scanning was also performed to better visualize the fetus and maternal ovaries. COMPARISON: FINDINGS: There is no visualized intrauterine or extrauterine . No visualized gestational sac is ident ified. There is no definitively identified ectopic . Maternal organs: Ovaries demonstrate a left ovarian cystic structure measuring 1.6 cm. IMPRESSION: 1. No visualized intrauterine . 2. No definitively identified extrauterine . Cystic structures noted within the left ovary s uggestive of involuting corpus luteal cyst. However, recommend correlation to beta hCG levels and reema rt interval imaging follow-up as recommended. The above findings were discussed with Dr. Jonathan Benites on 04/03/2021 at 2:40 PM. Reviewed by: Selena Mcdonald MD on 04/03/2021 2:42 PM PDT Approved by: Selena Mcdonald MD on 04/03/2021 2:42 PM PDT Station ID: [id number]
== END 2021-04-03 06:52 | disposition home or self-care (01) ==
LOC: DI 06:51
PROVIDERS: ATTEND Obstetrics & Gynecology
DX: R93.89 Abnormal findings on diagnostic imaging of other specified body structures (principal); O20.0 Threatened abortion
CPT/HCPCS: 36415; 84702

== ENCOUNTER 2021-04-03 16:31 | Outpatient (CLI) | payer BC | END 2021-04-03 16:32 | disposition home or self-care (01) | LOC: LAB 16:31 | PROVIDERS: ATTEND Obstetrics & Gynecology | DX: O20.0 Threatened abortion (principal) | CPT/HCPCS: 36415; 84702 ==

== ENCOUNTER 2021-04-05 16:12 | Outpatient (CLI) | payer BC | END 2021-04-05 16:13 | disposition home or self-care (01) | LOC: LAB 16:12 | PROVIDERS: ATTEND Obstetrics & Gynecology | DX: O20.0 Threatened abortion (principal) | CPT/HCPCS: 36415; 84702 ==

== ENCOUNTER 2021-04-05 18:18 | Emergency (ER) | payer BC ==
--- NOTE | 2021-04-05 18:34 | ED Physician Documentation ---
PD HPI ABD PAIN - Stated complaint Stated Complaint: ABNORMAL LABS - Chief complaint Chief Complaint: Abd Pain - History obtained from History obtained from: Patient - Additional information Additional information: who is of unknown gestation. She found out on the of this month. She had some heavy bleeding 2 days later and was seen in the emergency department on the of this month, she had a nondiagnostic ultrasound at that time and since then has been having serial beta hCGs. Her beta hCGs have been trending up, but not in the aches acted manner. On March 24 it was 196, March 26 344, March 31 802, April 03, 1634, Apr 05 2070. Since it is dropping off she was referred in by obstetrics for evaluation for potential methotrexate. Blood type is a positive. She has minimal cramping and just a bit of spotting right now. This was not necessarily a wanted nor is it unwanted though. She does have some concerns about methotrexate and being unable to drink alcohol for 2 weeks if she takes it. 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 AND MARKETING: None : Incontinence, Frequency HEENT: Other Psych: None Musculoskeletal: None Derm: None - Past Surgical History Past Surgical History: Yes General: Appendectomy Ortho: Other /DIRECTOR OF DEVELOPMENT AND MARKETING: section Cardiovascular: CABG Neuro: Craniotomy HEENT: Cataracts - Present Medications Home Medications: Ambulatory Orders Medication Instructions Recorded Confirmed No Known Home Medications 01/18/21 04/05/21 - Allergies Allergies/Adverse Reactions: Allergies Allergy/AdvReac Type Severity Reaction Status Date / Time meperidine HCl * Allergy Unknown Verified 04/05/21 18:24 [From Demerol] unknown antibiotic Allergy Hives Uncoded 04/05/21 18:24 surgical suture materia AdvReac Unknown Uncoded 04/05/21 18:24 - Social History Does the pt smoke?: Yes Smoking Status: Current every day smoker Does the pt drink ETOH?: Yes Does the pt have substance abuse?: No - Immunizations Immunizations are current?: Yes - POLST Patient has POLST: No PD ED PE NORMAL - Vitals Vital signs reviewed: Yes - General General: Alert and oriented X 3, No acute distress - HEENT HEENT: PERRL, EOMI - Neck Neck: Supple, no meningeal sign, No bony TTP - Abdomen Abdomen: Soft, Non tender - Extremities Extremities: No deformity, No tenderness to palpate, Normal ROM s pain - Neuro Neuro: Alert and oriented X 3, Normal speech Results - Vitals Vitals: Vital Signs - 24 hr 04/05/21 04/05/21 18:24 18:39 Temperature 36.7 C Heart Rate 96 80 Respiratory 16 16 Rate Blood Pressure 143/85 H 123/107 H O2 Saturation 96 97 Oxygen O2 Source Room air PD MEDICAL DECISION MAKING - ED course ED course: 45-year-old woman with slowly rising beta hCG and previously nondiagnostic ultrasounds presents at the behest of the on-call broadcast engineer for reevaluation for of undetermined location. Ultrasound tonight does not demonstrate an intrauterine . The MARKING DEVICES ASSEMBLER, Dr. Alexis did come in and see the patient. The broadcast engineer talked to the patient at length and recommended methotrexate and after discussion the patient was agreeable. Departure - Departure Disposition: 01 Home, Self Care Clinical Impression: Vaginal bleeding affecting early , Early stage of Condition: Good Record reviewed to determine appropriate education?: Yes Instructions: ED Preg Ectopic Methotrexate Tx Follow-Up: Jonathan Alexis MD [Provider Admit Priv/Credential] - Comments: You will need repeat beta hCGs on the and 30 of this month. If the hCG decreases by less than 15% a second dose of methotrexate will be required. You will need further beta hCGs to trend toward 0 to make sure that the therapy is effective. Return for new or worsening symptoms including and especially not limited to increased bleeding, dizziness, passing out. Followup with Dr Alexis , call his office tomorrow.
--- NOTE | 2021-04-05 20:33 | Ultrasound Report ---
PROCEDURE: OB First Trimester INDICATIONS: of undetermined location OUTSIDE/PRIOR DATING DATA: Last menstrual period (LMP): 01/25/2021. LMP-based estimated date of delivery (KEERTHI): 11/01/2021. First dating scan (date and location): 03/24/2021,[facility]. Estimated date of delivery (KEERTHI) from first dating scan: N/A. TECHNIQUE: Real-time scanning was performed of the fetus and maternal pelvic organs, with image documentation. COMPARISON: 04/03/2021 FINDINGS: No intrauterine or extrauterine identified. No gestational sac, crown-rump lengt h, or heartbeat. The endometrium No adnexal pathology. Maternal organs: Ovaries unremarkable. IMPRESSION: Unremarkable pelvic ultrasound. No evidence of intrauterine or extrauterine . Recommend continued correlation with serial beta hCGs and possibly follow-up ultrasound in 1-2 weeks. Reviewed by: Christian Sandy MD on 04/05/2021 8:32 PM PDT Approved by: Christian Sandy MD on 04/05/2021 8:32 PM PDT Station ID: [id number]
--- NOTE | 2021-04-05 20:34 | Ultrasound Report ---
PROCEDURE: OB Transvaginal INDICATIONS: of undetermined location OUTSIDE/PRIOR DATING DATA: Last menstrual period (LMP): 01/25/2021. LMP-based estimated date of delivery (KEERTHI): 11/01/2021. First dating scan (date and location): 03/24/2021,[facility]. Estimated date of delivery (KEERTHI) from first dating scan: N/A. TECHNIQUE: Real-time scanning was performed of the fetus and maternal pelvic organs, with image documentation. COMPARISON: 04/03/2021 FINDINGS: No intrauterine or extrauterine identified. No gestational sac, crown-rump lengt h, or heartbeat. The endometrium No adnexal pathology. Maternal organs: Ovaries unremarkable. IMPRESSION: Unremarkable pelvic ultrasound. No evidence of intrauterine or extrauterine . Recommend continued correlation with serial beta hCGs and possibly follow-up ultrasound in 1-2 weeks. Reviewed by: Christian Sandy MD on 04/05/2021 8:32 PM PDT Approved by: Christian Sandy MD on 04/05/2021 8:32 PM PDT Station ID: [id number]
[2021-04-05] MEDS ORDERED: METHOTREXATE 50 MG/2 ML IM STA (21:07)
[2021-04-05 21:55] VITALS: BP 134/83
== END 2021-04-05 21:55 | disposition home or self-care (01) ==
LOC: ED 18:18
DX: O20.9 Hemorrhage in early pregnancy, unspecified (principal); F17.200 Nicotine dependence, unspecified, uncomplicated; Z3A.00 Weeks of gestation of pregnancy not specified; O20.0 Threatened abortion
CPT/HCPCS: 36415; 76801; 76817; 84702; 96372; 99284; J9250

== ENCOUNTER 2021-04-09 10:14 | Outpatient (CLI) | payer BC | END 2021-04-09 10:15 | disposition home or self-care (01) | LOC: LAB 10:14 | PROVIDERS: ATTEND Obstetrics & Gynecology | DX: Z87.59 Personal history of other complications of pregnancy, childbirth and the puerperium (principal) | CPT/HCPCS: 36415; 84702 ==

== ENCOUNTER 2021-04-12 16:37 | Outpatient (CLI) | payer BC | END 2021-04-12 16:38 | disposition home or self-care (01) | LOC: LAB 16:37 | PROVIDERS: ATTEND Obstetrics & Gynecology | DX: O20.0 Threatened abortion (principal) | CPT/HCPCS: 36415; 84702 ==

== ENCOUNTER 2021-04-16 10:17 | Outpatient (CLI) | payer BC | END 2021-04-16 10:18 | disposition home or self-care (01) | LOC: LAB.S 10:17 | PROVIDERS: ATTEND Obstetrics & Gynecology | DX: Z87.59 Personal history of other complications of pregnancy, childbirth and the puerperium (principal) | CPT/HCPCS: 36415; 84702 ==

== ENCOUNTER 2021-04-24 17:14 | Outpatient (CLI) | payer BC | END 2021-04-24 17:15 | disposition home or self-care (01) | LOC: LAB.S 17:14 | PROVIDERS: ATTEND Obstetrics & Gynecology | DX: Z87.59 Personal history of other complications of pregnancy, childbirth and the puerperium (principal) | CPT/HCPCS: 36415; 84702 ==

== ENCOUNTER 2021-05-04 12:57 | Outpatient (CLI) | payer BC | END 2021-05-04 12:58 | disposition home or self-care (01) | LOC: LAB.S 12:57 | PROVIDERS: ATTEND Obstetrics & Gynecology | DX: O20.0 Threatened abortion (principal); Z87.59 Personal history of other complications of pregnancy, childbirth and the puerperium | CPT/HCPCS: 36415; 84702 ==

== ENCOUNTER 2021-05-16 11:48 | Outpatient (CLI) | payer BC | END 2021-05-16 11:49 | disposition home or self-care (01) | LOC: LAB.S 11:48 | PROVIDERS: ATTEND Obstetrics & Gynecology | DX: Z87.59 Personal history of other complications of pregnancy, childbirth and the puerperium (principal) | CPT/HCPCS: 36415; 84702 ==

== ENCOUNTER 2021-05-25 12:49 | Outpatient (CLI) | payer BC | END 2021-05-25 12:50 | disposition home or self-care (01) | LOC: LAB.S 12:49 | PROVIDERS: ATTEND Obstetrics & Gynecology | DX: Z87.59 Personal history of other complications of pregnancy, childbirth and the puerperium (principal) | CPT/HCPCS: 36415; 84702 ==

== ENCOUNTER 2022-06-07 20:44 | Outpatient (CLI) | payer BC ==
--- NOTE | 2022-06-08 13:56 | Ultrasound Report ---
PROCEDURE: OB First Trimester w/TV INDICATIONS: POSITIVE TEST OUTSIDE/PRIOR DATING DATA: Last menstrual period (LMP): 04/26/2022. LMP-based estimated date of delivery (KEERTHI): 01/31/2023. First dating scan (date and location): 06/07/2022. TECHNIQUE: Real-time scanning was performed of the fetus and maternal pelvic organs, with image documentation. Endovaginal scanning was also performed to better visualize the fetus and maternal ovaries. COMPARISON: None FINDINGS: Embryo: There is a possible single intrauterine gestational sac measuring approximately 0.45 cm for mean gestational sac diameter. This correlates with approximately 5 weeks and 2 days estimated gestat ional age. No pole. No cardiac activity. Heart rate: Nonmeasurable. This is likely related to early gestational age. Measurement variability in dating: +/- 4 weeks by LMP, +/- 7 days by mean sac diameter (use before 6 weeks gestation if crown-rump length not able to be measured), +/- 5 days by crown-rump length (6-12 weeks gestation). Maternal organs: Ovaries demonstrate presence of a left corpus luteal cyst.. No suspicious ovarian/a dnexal mass lesions. IMPRESSION: Heterogeneous endometrium with possible early gestational sac measuring approximately 5 weeks and 2 d ays estimated gestational age. No pole. No measurable cardiac activity at this time. Find ings may represent a normal early intrauterine gestation although a pseudogestational sac with ectopi c not completely excluded given reported history of positive test. Recommend cont inued clinical surveillance with quantitative serial beta hCG measurements and short interval follow- up ultrasound as needed. Reviewed by: Neal Schulz MD on 06/08/2022 1:55 PM PDT Approved by: Neal Schulz MD on 06/08/2022 1:55 PM PDT Station ID: [id number]
== END 2022-06-07 20:45 | disposition home or self-care (01) ==
LOC: DI 20:44
PROVIDERS: ATTEND Obstetrics & Gynecology
DX: Z32.01 Encounter for pregnancy test, result positive (principal)

== ENCOUNTER 2022-11-12 08:00 | Outpatient (CLI) | payer BC | END 2022-11-12 23:59 | disposition home or self-care (01) | LOC: LAB 08:00 | PROVIDERS: ATTEND Nurse Practitioner | DX: J02.9 Acute pharyngitis, unspecified (principal) | CPT/HCPCS: 87070 ==

== ENCOUNTER 2022-12-03 16:07 | Outpatient (CLI) | payer BC ==
--- NOTE | 2022-12-07 08:56 | Ultrasound Report ---
PROCEDURE: Head or Neck Soft Tissue INDICATIONS: SWELLING OF RIGHT THYROID TECHNIQUE: Real time scanning was performed of the neck region of interest, with image documentation . COMPARISON: None. FINDINGS: There are innumerable benign colloid cysts in the thyroid gland. No suspicious solid thyroi d nodule identified. Overall mildly enlarged thyroid measuring 5.2 x 1.6 x 2.3 cm on the right and 4. 3 x 1.4 x 1.8 cm on the left. Isthmus is normal in thickness measuring 3 mm. No lymphadenopathy at th e level of the thyroid. IMPRESSION: Mildly enlarged thyroid with innumerable tiny benign colloid cysts. No suspicious thyroid nodule/mass . Reviewed by: Yuval Lam MD on 12/07/2022 8:53 AM PST Approved by: Yuval Lam MD on 12/07/2022 8:53 AM PST Station ID: [id number]
== END 2022-12-03 16:08 | disposition home or self-care (01) ==
LOC: DI 16:07
PROVIDERS: ATTEND Nurse Practitioner Family
DX: E04.2 Nontoxic multinodular goiter (principal)

== ENCOUNTER 2022-12-07 07:55 | Outpatient (CLI) | payer BC ==
--- NOTE | 2022-12-07 15:38 | Mammography Report ---
BILATERAL DIGITAL SCREENING MAMMOGRAM 3D/2D WITH EXAGGERATED CC: 12/07/2022 CLINICAL: Routine screening. Family history of breast cancer. No prior exams were available for comparison. Both breasts are heterogeneously dense, which may obscure small masses (category c / 51-75% glandular tissue). There is a benign focal asymmetry in the right breast. No significant masses, calcifications, or other findings are seen in either breast. IMPRESSION: BENIGN There is no mammographic evidence of malignancy. A 1 year screening mammogram is recommended. This exam was interpreted at Station ID: [id number]. NOTE: For mammograms, a report in lay terms will be sent to the patient. Approximately 15% of breast malignancies will not be visualized mammographically. In the management of a palpable breast mass, a negative mammogram must not discourage biopsy of a clinically suspicious lesion. Electronically Signed By: Rodriguez Moore M.D. acr/penrad:12/07/2022 08:58:43 ACR BI-RADS Category 2: Benign Finding(s) 3342F PARENCHYMAL PATTERN: (D) - The breast(s) demonstrate(s) heterogeneously dense fibroglandular parenchy ma. BI-RADS CATEGORY: (2) - 2 RECOMMENDATION: (ANNUAL) - Recommend routine annual screening mammography. [id number] 1 year screening LATERALITY: (B)
== END 2022-12-07 07:56 | disposition home or self-care (01) ==
LOC: DI.S 07:55
PROVIDERS: ATTEND Physician Assistant
DX: Z12.31 Encounter for screening mammogram for malignant neoplasm of breast (principal); Z80.3 Family history of malignant neoplasm of breast

== ENCOUNTER 2023-10-17 08:00 | Outpatient (CLI) | payer BC ==
[2023-10-17 16:40] LABS: BILIRUBIN,URINE NEGATIVE (NEGATIVE); GLUCOSE, URINE (UA) NEGATIVE (NEGATIVE); KETONES,URINE (UA) NEGATIVE (NEGATIVE); LEUKOCYTE ESTERASE, URINE SMALL (NEGATIVE); NITRITE,URINE NEGATIVE (NEGATIVE); OCCULT BLOOD,URINE TRACE-INTA (NEGATIVE); PH,URINE 5.5 PH (5.0-7.5); PROTEIN,URINE NEGATIVE (NEGATIVE); UROBILINOGEN,URINE 0.2 (NORMAL) E.U./dL (NORMAL)
[2023-10-17 16:47] LABS: CLARITY,URINE HAZY (CLEAR)
[2023-10-17 16:54] LABS: RBC,URINE 0-5 /HPF (0-5)
[2023-10-17 16:55] LABS: AMORPHOUS SEDIMENT,UR Few /LPF; BACTERIA,URINE Moderate /HPF (None Seen); SQUAMOUS EPITHELIAL CELL,UR FEW Squamous (<= Few)
== END 2023-10-17 23:59 | disposition home or self-care (01) ==
LOC: LAB.WC 08:00
PROVIDERS: ATTEND Obstetrics & Gynecology
DX: Z34.90 Encounter for supervision of normal pregnancy, unspecified, unspecified trimester (principal)
CPT/HCPCS: 81001; 87086

== ENCOUNTER 2023-10-17 11:22 | Outpatient (CLI) | payer BC ==
--- NOTE | 2023-10-17 13:02 | Ultrasound Report ---
PROCEDURE: OB First Trimester w/TV INDICATIONS: POSITIVE TEST OUTSIDE/PRIOR DATING DATA: Last menstrual period (LMP): 08/09/2023. LMP-based estimated date of delivery (KEERTHI): 05/15/2020. First dating scan (date and location): 10/17/2023. TECHNIQUE: Real-time scanning was performed of the fetus and maternal pelvic organs, with image documentation. Endovaginal scanning was also performed to better visualize the fetus and maternal ovaries. COMPARISON: None. FINDINGS: Intrauterine gestational sac present. An intrauterine gestation is present, with a crown-rump length of 35 mm, corresponding to a 10 week 2 day gestation. No cardiac activity is seen. Other: No perigestational fluid collection. Maternal organs: Ovaries appear within normal limits. IMPRESSION: demise. Reviewed by: Pam Cummings MD on 10/17/2023 1:01 PM PST Approved by: Pam Cummings MD on 10/17/2023 1:01 PM PST Station ID: [id number]
== END 2023-10-17 11:23 | disposition home or self-care (01) ==
LOC: DI 11:22
PROVIDERS: ATTEND Nurse Practitioner
DX: O02.1 Missed abortion (principal)
CPT/HCPCS: 81001; 87086

== ENCOUNTER 2023-10-21 11:16 | Day surgery (SDC) | payer BC ==
[2023-10-21] MEDS ORDERED: LACTATED RINGERS 1,000 ML IV ONE ×6 (11:29→15:56)
[2023-10-21] MEDS ORDERED: MIDAZOLAM 2 MG/2 ML VIAL ONE (11:49)
[2023-10-21] MEDS ORDERED: PROPOFOL 500 MG/50 ML 500 MG/50 ML VIAL ONE (11:49)
[2023-10-21] MEDS ORDERED: fentaNYL 100 MCG/2 ML VIAL ONE (11:49)
[2023-10-21 12:01] LABS: BASOPHILS % (AUTO) 0.6 %; EOSINOPHILS % (AUTO) 0.6 %; HGB - HEMOGLOBIN 12.3 g/dL (12.0-16.0); LYMPHOCYTES # (AUTO) 1.5 10^3/uL (1.5-3.5); LYMPHOCYTES % (AUTO) 22.4 %; MEAN CORPUSCULAR HEMOGLOBIN 30.3 pg (27.0-31.0); MEAN CORPUSCULAR HGB CONC 32.4 g/dL (32.0-36.0); MEAN CORPUSCULAR VOLUME 93.6 fL (81.0-99.0); MEAN PLATELET VOLUME 10.5 fL (7.9-10.8); MONOCYTES # (AUTO) 0.7 10^3/uL (0.0-1.0); MONOCYTES % (AUTO) 9.9 %; NEUTROPHILS # (AUTO) 4.4 10^3/uL (1.5-6.6); NEUTROPHILS % (AUTO) 66.2 %; PLT - PLATELET COUNT 201 10^3/uL (130-450); RED BLOOD COUNT 4.06 10^6/uL (4.20-5.40); RED CELL DISTRIBUTION WIDTH 13.1 % (12.0-15.0); WHITE BLOOD COUNT 6.7 x10^3/uL (4.8-10.8)
--- NOTE | 2023-10-21 12:14 | ANESTHESIA ---
Pre-Anesthesia VS, & Labs - Diagnosis Missed - Procedure D and C Vital Signs: Temp Pulse Resp BP Pulse Ox O2 Flow Rate 36.4 C L 73 19 111/74 99 10/21/23 11:36 10/21/23 11:36 10/21/23 11:36 10/21/23 11:36 10/21/23 11:36 Height: 5 ft 9 in Weight (kg): 93.1 kg Body Mass Index: 30.3 BMI Classification: Obese - NPO Last Fluid Intake: 06 - Is Patient ?: No (missed ) - Lab Results Current Lab Results: Laboratory Tests 10/21/23 11:52: WBC 6.7, RBC 4.06 L, Hgb 12.3, Hct 38.0, MCV 93.6, MCH 30.3, MCHC 32.4, RDW 13.1, Plt Count 201, MPV 10.5, Neut # (Auto) 4.4, Lymph # (Auto) 1.5, [place] # (Auto) 0.7, Eos # (Auto) 0.0, Baso # (Auto) 0.0, Absolute Nucleated RBC 0.00, Nucleated RBC % 0.0 Fish Bones: 10/21/23 11:52 Home Medications and Allergies No Known Home Medications 01/18/21 Allergies/Adverse Reactions: Allergies Allergy/AdvReac Type Severity Reaction Status Date / Time meperidine HCl * Allergy Unknown Verified 04/05/21 18:24 [From Demerol] unknown antibiotic Allergy Hives Uncoded 04/05/21 18:24 surgical suture materia AdvReac Unknown Uncoded 04/05/21 18:24 Anes History & Medical History - Anesthetic History Anesthesia Complications: reports: Other-see comment (poor experience w mac on prior d/c, felt everything, prior vocal cord surgery, told to use a smaller tube) Family history of Anesthesia Complications: Denies Family history of Malignant Hyperthermia: Denies - Medical History Cardiovascular: reports: None Pulmonary: reports: None, Other (smoker 3/4 ppd x 33 years) Gastrointestinal: reports: None, Hemorrhoids Urinary: reports: None Neuro: reports: None Musculoskeletal: reports: None Endocrine/Autoimmune: reports: None Blood Disorders: reports: None Skin: reports: None Smoking Status: Current every day smoker Psychosocial: reports: No issues indicated History of Cancer?: No - Surgical History General: reports: Appendectomy Eyes Ears Nose Throat (EENT): Cardiothoracic: Urologic: Gynecologic: Neurologic: Orthopedic: reports: Other Exam General: Alert Dental: WNL Mouth Openin Fingerbreadth Neck Mobility: Normal Mallampati classification: II Thyromental Distance: 4-6 cm Mental/Cognitive Status: Alert/Oriented X3 Cognitive Status: Within normal limits Plan Anesthesia Type: General Consent for Procedure(s) Verified and Reviewed: Yes Code Status: Attempt Resuscitation ASA classification: 2-Mild systemic disease Is this case an emergency?: No
[2023-10-21] MEDS ORDERED: fentaNYL 100 MCG/2 ML VIAL IVP PRN (12:17)
[2023-10-21] MEDS ORDERED: NALOXONE 0.4 MG/ML VIAL IVP PRN (12:17)
[2023-10-21] MEDS ORDERED: ePHEDrine 50 MG/ML VIAL IVP PRN (12:17)
[2023-10-21] MEDS ORDERED: ATROPINE ABBOJECT 1 MG/10 ML SYRINGE IVP PRN (12:17)
[2023-10-21] MEDS ORDERED: METOCLOPRAMIDE 10 MG/2 ML VIAL IVP PRN (12:17)
[2023-10-21] MEDS ORDERED: ONDANSETRON 4 MG/2 ML VIAL IVP PRN (12:17)
[2023-10-21] MEDS ORDERED: HYDROmorphone 0.5 MG/0.5 ML SYRINGE IVP PRN (12:17)
[2023-10-21] MEDS ORDERED: MORPHINE 2 MG/ML CARPUJECT IVP PRN (12:17)
[2023-10-21 12:23] LABS: ALBUMIN 4.1 g/dL (3.2-5.5); ALBUMIN/GLOBULIN RATIO 1.7 (1.0-2.2); BILIRUBIN,TOTAL 0.5 mg/dL (0.2-1.0); CALCIUM 9.3 mg/dL (8.5-10.3); CREATININE 0.5 mg/dL (0.6-1.3); POTASSIUM 3.5 mmol/L (3.5-4.5); TOTAL PROTEIN 6.5 g/dL (6.4-8.9)
[2023-10-21] MEDS ORDERED: ONDANSETRON 4 MG/2 ML VIAL ONE (12:37)
[2023-10-21] MEDS ORDERED: LACTATED RINGERS 1,000 ML IV SCH (13:00)
[2023-10-21] MEDS ORDERED: METHYLERGONOVINE 0.2 MG/ML VIAL ONE (13:24)
[2023-10-21] MEDS ORDERED: miSOPROStoL 200 MCG TABLET ONE (13:24)
[2023-10-21] MEDS ORDERED: CARBOPROST TROMETHAMINE 250 MCG/ML AMP IM ONE (13:24)
[2023-10-21] MEDS ORDERED: miSOPROStoL 200 MCG TABLET PR ONE (14:00)
[2023-10-21 14:21] LABS: HCT - HEMATOCRIT 32.3 % (37.0-47.0); HGB - HEMOGLOBIN 10.7 g/dL (12.0-16.0)
--- NOTE | 2023-10-21 14:59 | ANESTHESIA POST OP EVALUATION ---
Anesthesia Post Eval - Post Anesthesia Eval Vitals: Last Vital Signs Temp 36.1 C L 10/21/23 14:55 Pulse 77 10/21/23 14:55 Resp 20 10/21/23 14:55 BP 119/72 10/21/23 14:55 Pulse Ox 95 10/21/23 14:55 O2 Flow Rate CV Function Including HR & BP: Stable Pain Control: Satisfactory Nausea & Vomiting: Negative Mental Status: Baseline Respiratory Status: Airway Patent Hydration Status: Satisfactory, Other (H&H to post op , monitoring in PACU, BP stable) Anesthesia Complications: None
[2023-10-21 15:28] LABS: HCT - HEMATOCRIT 37.7 % (37.0-47.0); HGB - HEMOGLOBIN 11.7 g/dL (12.0-16.0)
--- NOTE | 2023-10-21 15:43 | OPERATIVE REPORT ---
Operative Report - General Procedure Date: 10/21/23 Planned Procedure: D&C Pre-Op Diagnosis: missed AB - 10 weeks Procedure Performed: U/S guided D&C Post Op Diagnosis: same as above, and hemorrhage 2'2 uterine atony - Procedure Note Primary Surgeon: bella Secondary Surgeon: isabell Anesthesia Provider: ASHLEY Anesthesia Technique: General LMA Pathology: POC Estimated Blood Loss (mL): 1,200 Urine Output (mL): 0 Indications: missed AB Findings: small post operative uterus normal cervix ? calcifications in EMS empty EMS post-op, affirmed by radiologist. possible clot, though no clear retained POC Complications: hemorrhage - Other Other Information/Narrative: OPERATIVE NOTE Pre-operative diagnosis: 1. Missed AB Procedure: D&C, ultrasound in the OR Post-operative diagnosis: Same as above Surgeon: Bella Supervisor Assembly And Packing: Isabell OBGYN was called into the case, and her assistance with visual ization was imperative to the well being of this patient. Anesthesia: General Findings: EUA: small uterus, no adnexal masses, normal cervix, retroverted Speculum: normal vagina, normal cervix 360' uterine cry after procedure intraop U/S showed ? 1.5cm EMS, some apparent clot, though during the procedure the U/S guidance showed thin EMS. Specimen: POC Complications: Hemorrhage EBL: 1200cc UOP: none, pt voided prior to case Dispo: Pt to PACU in stable condition Procedure in detail: After risks benefits and alternatives, as well as indication for procedure and anticipated post-operative recovery course, were discussed with the patient informed consent was obtained and patient was taken to the operating theater where general anesthesia was administered without complication. Pt placed in dorsal lithotomy position, SCDs in place and running, and bimanual exam revealed the aforementioned findings. Lala speculum placed in posterior vagina, and anterior lip of cervix grasped with ring forces. Cervix dilated to accomodate size 11 currette - as soon as dilator was inserted into cervical os, patient began hemorrhaging. Hemorrhaged quickly until D&C was complete. Lost appx 800cc blood in 4 minutes, methergine was given, once U/S affirmed that current had emptied uterine cavity misoprostol was given. Continued to have intermittent uterine atony, second OBGYN called into the OR due to rapid blood loss and in order to assist with U/S visualization. 360' uterine cry affirmed. Second OBGYN did additional curretage, affirmed empty uterus. Uterus firm, scant bleeding. Curettage done 360' uterine cry. All instruments removed, specimen sent to pathology. All counts correct. Pt awaked from anesthesia. Pt to PACU in stable condition. Post operatively both surgeons discussed with radiologist who affirmed that cannot say there are retained POC. follow clinically. Patient no longer bleeding, uterus was empty with 360' cry. Will follow HCGs. Events of case discussed with pt and her partner. all questions answered. Repeat CBC wnl.
[2023-10-21 16:15] VITALS: O2SAT 100
--- NOTE | 2023-10-21 16:33 | Ultrasound Report ---
PROCEDURE: Transvaginal INDICATIONS: Check endometrium post procedure TECHNIQUE: Real-time endovaginal scanning was performed of the pelvic organs, with image documentation. COMPARISON: OB ultrasound, 10/17/2010 23. FINDINGS: Limited endovaginal examination. Uterus: Uterus appears enlarged. Endometrium is thickened and heterogeneous measuring up to 20 mm. T here is echogenic foci within the endometrial cavity, likely secondary to air collections. There is a small hypoechoic area in the fundus. On Doppler ultrasound, there is no increased vascularity. Other: No adnexal mass or free fluid. IMPRESSION: 1. Endometrium is thickened and irregular. Small echogenic foci within the endometreal cavity are pro bably caused by air. There is a small hypoechoic area near the fundus, demonstrating no vascularity o n Doppler ultrasound. It may be a small clot. No definitive retained products of conception. 2. No free fluid. Reviewed by: Jackie Diaz MD on 10/21/2023 4:31 PM PST Approved by: Jackie Diaz MD on 10/21/2023 4:31 PM PST Station ID: [id number]
[2023-10-21 16:41] VITALS: BP 111/78
[2023-10-21] MEDS ORDERED: KETOROLAC 30 MG/ML VIAL IVP SCH (17:00)
--- NOTE | 2023-10-21 18:10 | CONSULTATION NOTE ---
Surgery Consult - Admit Date Hospital Admission Date: 10/21/23 - Consult Date Consult Date: 10/21/23 Requesting Provider: Dr. Speedy Blanco - Chief Complaint Chief Complaint: vaginal bleeding - Home Meds/Allergies Home Medications: Patient History Medication Instructions Recorded Confirmed No Known Home Medications 01/18/21 10/20/23 Allergies/Adverse Reactions: Allergies Allergy/AdvReac Type Severity Reaction Status Date / Time meperidine HCl * Allergy Unknown Verified 04/05/21 18:24 [From Demerol] unknown antibiotic Allergy Hives Uncoded 04/05/21 18:24 surgical suture materia AdvReac Unknown Uncoded 04/05/21 18:24 - Vital Signs Vital Signs: Last Vital Signs Temp 97.5 F L 10/21/23 16:31 Pulse 110 H 10/21/23 16:31 Resp 14 10/21/23 16:31 BP 111/78 10/21/23 16:31 Pulse Ox 100 10/21/23 16:31 O2 Flow Rate Intake & Output: Intake & Output 10/18/23 10/19/23 10/20/23 10/21/23 23:59 23:59 23:59 23:59 Intake Total 1600 Output Total 1000 Balance 600 - Lab Results Result Diagrams: 10/21/23 15:24 10/21/23 11:52 - Consultation Note Consultation Note: Was called for assistance with ultrasound visualization during a dilation and curettage procedure for an approximately 10-week missed . At the time he presented to the OR there was already approximately 1 L of blood loss. Per Dr. Carmona, she was not concerned for uterine perforation.On initial ultrasound there was products of conception versus blood clot within the uterus.Patient had already been given Methergine and Cytotec. I switched positions with the provider and did curettage of the uterus under direct ultrasound visualization along with suction curettage. Bleeding resolved at this point the case. Ultrasound was called for formal evaluation of the uterine lining and posterior cul-de-sac. Please see Dr. Blanco's full operative report.
== END 2023-10-21 11:17 | disposition home or self-care (01) ==
LOC: SDS 11:16
PROVIDERS: ATTEND Obstetrics & Gynecology
PROC: 10D17Z9 Manual Extraction of Products of Conception, Retained, Via Natural or Artificial Opening (ICD-10-PCS; principal; 2023-10-21 12:00)
DX: O02.1 Missed abortion (principal); E66.9 Obesity, unspecified; F17.210 Nicotine dependence, cigarettes, uncomplicated; Z68.30 Body mass index [BMI] 30.0-30.9, adult
CPT/HCPCS: 36415; 59820; 76830; 80053; 85014; 85018; 85025; 86850; 86900; 86901; 86920; A9270; J2210; J7120

== ENCOUNTER 2023-10-26 16:24 | Outpatient (CLI) | payer BC ==
[2023-10-26 16:44] LABS: BASOPHILS # (AUTO) 0.1 10^3/uL (0.0-0.1); BASOPHILS % (AUTO) 0.8 %; EOSINOPHILS # (AUTO) 0.2 10^3/uL (0.0-0.7); EOSINOPHILS % (AUTO) 2.8 %; HGB - HEMOGLOBIN 10.8 g/dL (12.0-16.0); LYMPHOCYTES % (AUTO) 27.7 %; MEAN CORPUSCULAR HEMOGLOBIN 30.8 pg (27.0-31.0); MEAN CORPUSCULAR HGB CONC 32.7 g/dL (32.0-36.0); MEAN PLATELET VOLUME 10.1 fL (7.9-10.8); MONOCYTES # (AUTO) 0.6 10^3/uL (0.0-1.0); MONOCYTES % (AUTO) 8.9 %; NEUTROPHILS # (AUTO) 4.3 10^3/uL (1.5-6.6); NEUTROPHILS % (AUTO) 59.2 %; PLT - PLATELET COUNT 278 10^3/uL (130-450); RED BLOOD COUNT 3.51 10^6/uL (4.20-5.40); RED CELL DISTRIBUTION WIDTH 13.7 % (12.0-15.0); WHITE BLOOD COUNT 7.2 x10^3/uL (4.8-10.8)
[2023-10-26 16:47] LABS: BILIRUBIN,URINE NEGATIVE (NEGATIVE); GLUCOSE, URINE (UA) NEGATIVE (NEGATIVE); KETONES,URINE (UA) NEGATIVE (NEGATIVE); LEUKOCYTE ESTERASE, URINE NEGATIVE (NEGATIVE); NITRITE,URINE NEGATIVE (NEGATIVE); OCCULT BLOOD,URINE NEGATIVE (NEGATIVE); PROTEIN,URINE NEGATIVE (NEGATIVE); UROBILINOGEN,URINE 0.2 (NORMAL) E.U./dL (NORMAL)
[2023-10-26 16:48] LABS: CLARITY,URINE CLEAR (CLEAR)
[2023-10-26 17:10] LABS: BACTERIA,URINE None Seen /HPF (None Seen); RBC,URINE 0-5 /HPF (0-5); SQUAMOUS EPITHELIAL CELL,UR RARE Squamous (<= Few); WBC,URINE 0-3 /HPF (0-5)
== END 2023-10-26 16:25 | disposition home or self-care (01) ==
LOC: LAB 16:24
PROVIDERS: ATTEND Obstetrics & Gynecology
DX: G89.18 Other acute postprocedural pain (principal)
CPT/HCPCS: 36415; 81001; 85025; 87070; 87077; 87086